=== PATIENT | male | born 1985 | race American Indian/Alaskan Native ===

== ENCOUNTER 2021-01-07 16:20 | Emergency (ER) | payer OTHER ==
[2021-01-07 18:24] VITALS: BP 136/92
[2021-01-07] MEDS ORDERED: IBUPROFEN 800 MG TAB PO ONE (22:05)
--- NOTE | 2021-01-07 22:24 | Emergency Department Report ---
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 Patient denies fall injury or trauma. Patient states pain is 4/10 aching but soreness. Pain is exacerbated by movement and loading boxes at work. Pain is relieved by offloading and rest. There is been no swelling, no bleeding, no abrasion, or deformity. There is been no , weakness or paralysis. Symptoms are temporarily relieved by wrist brace. ED Review of Systems ROS: Stated complaint: WRIST INJURY Other details as noted in HPI Constitutional: denies: chills, fever Eyes: denies: eye pain, eye discharge, vision change ENT: denies: ear pain, throat pain Respiratory: denies: cough, shortness of breath, wheezing Cardiovascular: denies: chest pain, palpitations Endocrine: no symptoms reported Gastrointestinal: as per HPI Genitourinary: denies: urgency, dysuria Musculoskeletal: other (left lateral wrist , no abrasion no laceration no swelling, ). denies: back pain, joint swelling, arthralgia Skin: denies: rash, lesions Neurological: denies: headache, weakness, paresthesias Psychiatric: as per HPI Hematological/Lymphatic: denies: easy bleeding, easy bruising ED Past Medical Hx - Past Medical History Previous Medical History?: No - Surgical History Past Surgical History?: No - Medications Home Medications: Home Medications Medication Instructions Recorded Confirmed Last Taken Type Cyclobenzaprine [Flexeril] 10 mg PO BID PRN #12 tablet 01/07/21 Unknown Rx Menthol/Camphor [[place] Bosque 50 gm TP TID #12 oint...g. 01/07/21 Unknown Rx Ointment] Naproxen 500 mg PO BID PRN #30 tablet 01/07/21 Unknown Rx Upper Extremity Exam - Exam General: Vital signs noted. No distress. Alert and acting appropriately. Head and Torso: No HEENT Abnormality, No Neck Tenderness, No Chest/Lungs Abnormality, No Abdominal Tenderness, No Back Tenderness Shoulder Exam: Yes Normal Range of Motion in Shoulder, No Shoulder Tenderness, No Clavicle Tenderness, No Shoulder Deformity, No AC Joint Tenderness Arm Exam: No Arm/Humerus Tenderness, No Arm Deformity Elbow: No Elbow Tenderness, No Normal Range of Motion in Elbow, No Elbow Deformity Forearm: No Forearm Tenderness, No Forearm Deformity, No Pain with Pronation, No Pain with Supination Wrist: Yes Wrist Tenderness, Yes Normal ROM in Wrist, No Wrist Deformity Hand: Yes Normal ROM in Digit(s), No Hand Tenderness, No Hand Deformity, No Digit Tenderness, No Digit(s) Deformity, No Tendon Dysfunction CMS Exam: Yes Normal Distal Pulses, Yes Normal Capillary Refill, Yes Normal Distal Sensation, No Broken Skin Hand L/R Back: 1 - left wrist pain ED Course Vital Signs 01/07/21 18:23 Temperature 98.7 F Pulse Rate 80 Respiratory 18 Rate Blood Pressure 136/92 O2 Sat by Pulse 98 Oximetry ED Medical Decision Making - Radiology Data Radiology results: report reviewed, image reviewed - Medical Decision Making This is an overuse injury versus wrist sprain. Plan NSAIDs, continue wrist support, rice therapy. Follow-up primary care doctor in 2 to 3 days. Patient DC'd home in stable condition at this time. Patient departs ED ambulatory with steady gait x 1 with no acute distress. Critical care attestation.: If time is entered above; I have spent that time in minutes in the direct care of this critically ill patient, excluding procedure time. ED Disposition Clinical Impression: Wrist strain Qualifiers: Encounter type: initial encounter Laterality: left Qualified Code(s): S66.912A - Strain of unspecified muscle, fascia and tendon at wrist and hand level, left hand, initial encounter Disposition: DC- TO HOME OR SELFCARE Is pt being admited?: No Does the pt Need Aspirin: No Condition: Stable Instructions: Wrist Sprain Rehab-[facility] Additional Instructions: RICE Therapy as directed, take medications as directed, folllowing ups eagles nest Prescriptions: Cyclobenzaprine [Flexeril] 10 mg PO BID PRN #12 tablet PRN Reason: muscle pasm Naproxen 500 mg PO BID PRN #30 tablet PRN Reason: pain Menthol/Camphor [[place] Bosque Ointment] 50 gm TP TID #12 oint...g. Referrals: OLIVERIO YI MD [Staff Physician] - 3-5 Days Forms: Work/School Release Form(ED)
== END 2021-01-07 22:47 | disposition home or self-care (01) ==
LOC: ED 16:20
DX: S66.812A Strain of other specified muscles, fascia and tendons at wrist and hand level, left hand, initial encounter (principal); Z98.890 Other specified postprocedural states; X50.0XXA Overexertion from strenuous movement or load, initial encounter; Y93.89 Activity, other specified; Y92.89 Other specified places as the place of occurrence of the external cause; Y99.8 Other external cause status
CPT/HCPCS: 99282